=== PATIENT | male | born 1980 ===

== ENCOUNTER 2016-10-02 09:27 | Emergency (ER) | payer OTHER ==
[2016-10-02 09:27] VITALS: BMI 29.1
[2016-10-02 09:49] VITALS: RESP 18; TEMP 98.3
--- NOTE | 2016-10-02 10:58 | C.PDOC ---
History Of Present Illness 36 yr old male with PMHx of chronic back pain, presents to the ER for evaluation of back pain which started again this morning. Patient reports the pain is in the left lower lumbar area, no radiation, worse when he stands or walks. Patient states the last time he had this pain was 6 weeks ago and usually gets the pain 2-3 times a year. Patient denies fever, nausea, vomiting, abdominal pain, diarrhea, dysuria, hematuria, weakness or numbness. Time Seen by Provider: 10/02/16 10:12 Chief Complaint (Nursing): Back Pain History Per: Patient History/Exam Limitations: no limitations Onset/Duration Of Symptoms: Sudden Onset (this morning ) Current Symptoms Are (Timing): Still Present Past Medical History Reviewed: Historical Data, Nursing Documentation, Vital Signs Vital Signs: Last Vital Signs Temp 98.3 F 10/02/16 09:47 Pulse 67 10/02/16 11:06 Resp 18 10/02/16 11:06 BP 120/69 10/02/16 11:06 Pulse Ox 97 10/02/16 11:31 - Medical History PMH: Back Problems Family History: States: No Known Family Hx - Social History Hx Alcohol Use: Yes Hx Substance Use: No Review Of Systems Except As Marked, All Systems Reviewed And Found Negative. Constitutional: Negative for: Fever Gastrointestinal: Negative for: Nausea, Vomiting, Abdominal Pain, Diarrhea Genitourinary: Negative for: Dysuria, Hematuria Musculoskeletal: Positive for: Back Pain (left lower lumbar ) Neurological: Negative for: Weakness, Numbness Physical Exam - Physical Exam Appears: Non-toxic, No Acute Distress Skin: Warm, Dry, No Rash Head: Atraumatic, Normacephalic Cardiovascular: Rhythm Regular, No Murmur Respiratory: Normal Breath Sounds, No Rales, No Rhonchi, No Stridor, No Wheezing Gastrointestinal/Abdominal: Normal Exam, Soft, No Tenderness, No Guarding, No Rebound Back: No Muscle Spasm, No Straight Leg Raising, Other ((+) Left paralumbar tenderness) Extremity: Normal ROM, No Swelling Neurological/Psych: Oriented x3, Normal Speech, Normal Cognition, Normal Motor Gait: Steady ED Course And Treatment O2 Sat by Pulse Oximetry: 97 Medical Decision Making Medical Decision Making: PLAN: * Flexeril PO * Toradol IM No indication of cord compression plan dc home symptomatic meds clinic f/u Disposition - Disposition Referrals: [facility] [Outside] Disposition: HOME/ ROUTINE Disposition Time: 10:53 Condition: GOOD Prescriptions: Cyclobenzaprine [Cyclobenzaprine HCl] 1 tab PO Q8H PRN #25 tab PRN Reason: Muscle Spasm Naproxen [Naprosyn] 1 tab PO BID PRN #25 tab PRN Reason: Pain Instructions: Acute Low Back Pain (ED) Forms: Work Excuse - Clinical Impression Clinical Impression: Low back pain - Scribe Statement The provider has reviewed the documentation as recorded by the Latonia Mora Provider Attestation: All medical record entries made by the Latonia were at my direction and personally dictated by me. I have reviewed the chart and agree that the record accurately reflects my personal performance of the history, physical exam, medical decision making, and the department course for this patient. I have also personally directed, reviewed, and agree with the discharge instructions and disposition.
[2016-10-02 11:07] VITALS: BP 120/69; PULSE 67
[2016-10-02 11:29] VITALS: O2SAT 97
== END 2016-10-02 11:10 | disposition home or self-care (01) ==
LOC: C.ER 09:27
DX: M54.5 Low back pain (principal)
CPT/HCPCS: 96372; 99283; J1885

== ENCOUNTER 2017-02-18 14:43 | Emergency (ER) | payer SELFPAY ==
[2017-02-18 14:43] VITALS: BMI 29.1
[2017-02-18 14:48] VITALS: RESP 20
--- NOTE | 2017-02-18 15:17 | C.PDOC ---
History Of Present Illness 36 yr old male with PMHx of chronic "pinched nerve" s/p work accident years ago , presents to the ER for evaluation of back pain which started again this morning. STateshe lifts boses at work and believes this exacerbated the pain. Patient reports the pain is in the left lower lumbar area, no radiation, worse when he stands or walks. States he gets this pain every few months, no new symptoms, no new trauma. He does not have a doctor therefore comes here every time he gets the pain. Did not take anything for the pain. Patient denies fever , nausea, vomiting, abdominal pain, diarrhea, dysuria, hematuria, weakness, urinary/bowel incontinence, or numbness Time Seen by Provider: 02/18/17 14:49 Chief Complaint (Nursing): Back Pain History Per: Patient History/Exam Limitations: no limitations Onset/Duration Of Symptoms: Hrs Current Symptoms Are (Timing): Still Present Quality Of Discomfort: "Pain" Past Medical History Reviewed: Historical Data, Nursing Documentation, Vital Signs Vital Signs: Last Vital Signs Temp 97.4 F L 02/18/17 15:50 Pulse 62 02/18/17 15:50 Resp 20 02/18/17 15:50 BP 107/72 02/18/17 15:50 Pulse Ox 99 02/18/17 15:50 - Medical History PMH: Back Problems Family History: States: Unknown Family Hx - Social History Hx Alcohol Use: Yes Hx Substance Use: No - Immunization History Hx Tetanus Toxoid Vaccination: No Hx Influenza Vaccination: No Hx Pneumococcal Vaccination: No Review Of Systems Except As Marked, All Systems Reviewed And Found Negative. Constitutional: Negative for: Fever, Chills Gastrointestinal: Negative for: Nausea, Vomiting, Diarrhea Genitourinary: Negative for: Dysuria, Frequency, Incontinence Musculoskeletal: Positive for: Back Pain Skin: Negative for: Rash Neurological: Negative for: Weakness, Numbness Physical Exam - Physical Exam Appears: Non-toxic, No Acute Distress Skin: Normal Color, Warm, Dry, No Rash Head: Atraumatic, Normacephalic Eye(s): bilateral: Normal Inspection, EOMI Nose: Normal Oral Mucosa: Moist Neck: Normal ROM, Supple Chest: Symmetrical Cardiovascular: Rhythm Regular Respiratory: Normal Breath Sounds, No Rales, No Rhonchi, No Wheezing Gastrointestinal/Abdominal: Soft, No Tenderness, No Guarding, No Rebound Back: No CVA Tenderness, No Vertebral Tenderness, Muscle Spasm, Paraspinal Tenderness ((+) left lower lumbar) Pulses: Left Dorsalis Pedis: Normal, Right Dorsalis Pedis: Normal Neurological/Psych: Oriented x3, Normal Speech, Normal Motor, Normal Sensation, Other (No focal deficits) Gait: Steady ED Course And Treatment O2 Sat by Pulse Oximetry: 100 (RA) Pulse Ox Interpretation: Normal Reevaluation Time: 15:20 (On reassessment, patient is resting comfortably, with improvement of back pain. Patient remains afebrile, with no bony tenderness, extremity numbness or weakness, or abdominal pain. Patient is ambulatory in the emergency department with no signs of discomfort. Patient was advised to follow up with physician/clinic in 1-2 days.) Reassessment Condition: Improved Disposition - Disposition Disposition: HOME/ ROUTINE Disposition Time: 15:30 Condition: STABLE Additional Instructions: Vaya a melendez mdico o la clnica en 1-3 ritter sin falta, para mas evaluacin. Moffett los medicamentos kenna indicado. Volver a la heena de emergencia en cualquier momento si los sntomas persisten o empeoran. Prescriptions: Cyclobenzaprine [Cyclobenzaprine HCl] 10 mg PO TID #20 tab Naproxen [Naprosyn] 1 tab PO BID PRN #20 tab PRN Reason: Pain Instructions: Acute Low Back Pain (ED) Forms: [facility] [employer] (Ukrainian), Work Excuse Print Language: PORTUGUESE - Clinical Impression Clinical Impression: Lumbar sprain - Scribe Statement The provider has reviewed the documentation as recorded by the Latonia Parham All medical record entries made by the Scribe were at my direction and personally dictated by me. I have reviewed the chart and agree that the record accurately reflects my personal performance of the history, physical exam, medical decision making, and the department course for this patient. I have also personally directed, reviewed, and agree with the discharge instructions and disposition.
[2017-02-18 15:50] VITALS: BP 107/72; TEMP 97.4
[2017-02-18 16:05] VITALS: PULSE 62
[2017-02-18 20:57] VITALS: O2SAT 100
== END 2017-02-18 15:57 | disposition home or self-care (01) ==
LOC: C.ER 14:43
DX: S33.5XXA Sprain of ligaments of lumbar spine, initial encounter (principal); X50.0XXA Overexertion from strenuous movement or load, initial encounter; Y93.89 Activity, other specified; Y92.89 Other specified places as the place of occurrence of the external cause; Y99.8 Other external cause status
CPT/HCPCS: 96372; 99283; J1885

== ENCOUNTER 2017-04-03 15:57 | Emergency (ER) | payer OTHER ==
[2017-04-03 15:57] VITALS: BMI 29.1
[2017-04-03 16:01] VITALS: BP 112/79; RESP 18; TEMP 98.5
[2017-04-03] MEDS ORDERED: Lidocaine 5% Patch TD STA (16:11)
--- NOTE | 2017-04-03 16:14 | C.PDOC ---
History Of Present Illness 36 year old male presents to ER with complaints of low back pain radiating down the left leg since this morning. Patient reports history of "pinched nerve" and chronic back pain. He has been seen in ED for similar symptoms in the past, has no PMD. Time Seen by Provider: 04/03/17 16:06 Chief Complaint (Nursing): Back Pain History Per: Patient History/Exam Limitations: no limitations Current Symptoms Are (Timing): Still Present Previous Symptoms: Chronic Pain (chronic back pain ), Other (hx of "pinched nerve" ) Associated Symptoms: None Recent travel outside of the [place]: No Past Medical History Reviewed: Historical Data, Nursing Documentation, Vital Signs Vital Signs: Last Vital Signs Temp 98.5 F 04/03/17 15:59 Pulse 82 04/03/17 16:45 Resp 18 04/03/17 16:45 BP 112/79 04/03/17 15:59 Pulse Ox 96 04/03/17 17:25 - Medical History PMH: Back Problems Family History: States: Unknown Family Hx - Social History Hx Alcohol Use: Yes Hx Substance Use: No - Immunization History Hx Tetanus Toxoid Vaccination: No Hx Influenza Vaccination: No Hx Pneumococcal Vaccination: No Review Of Systems Constitutional: Negative for: Fever, Chills Gastrointestinal: Negative for: Nausea, Vomiting Musculoskeletal: Positive for: Back Pain, Leg Pain (radiating from lower back pain ) Physical Exam - Physical Exam Appears: Non-toxic, No Acute Distress Skin: Warm, Dry Head: Atraumatic, Normacephalic Eye(s): bilateral: Normal Inspection, PERRL, EOMI Neck: Normal ROM, Supple Chest: Symmetrical, No Deformity Cardiovascular: Rhythm Regular, No Murmur Respiratory: Normal Breath Sounds, No Rales, No Rhonchi, No Wheezing Gastrointestinal/Abdominal: Soft, No Tenderness Back: Paraspinal Tenderness (lumbosacral tenderness) Extremity: Normal ROM, No Tenderness Neurological/Psych: Oriented x3 ED Course And Treatment O2 Sat by Pulse Oximetry: 96 (room air ) Progress Note: Patient was given Flexeril, Toradol, and lidoderm was applied. Medical Decision Making Medical Decision Making: Impression: back pain Prior records reviewed: last seen 02/18/17 for back pain treated with Toradol and Flexeril Plan: * Toradol * Lidoderm * Flexeril Progress: On re-eval patient is feeling better asking for discharge papers. He is ambulatory without signs of discomfort. Patient is stable for discharge. Disposition Counseled Patient/Family Regarding: Diagnosis, Need For Followup, Rx Given - Disposition Referrals: [facility] [Outside] Disposition: HOME/ ROUTINE Disposition Time: 16:36 Condition: STABLE Additional Instructions: Follow up with the clinic in 2-5 days for further evaluation. Take medications as needed for pain. Return to the emergency department at any time if symptoms persist or worsen. You may call [facility] for any assistance . Prescriptions: Cyclobenzaprine [Cyclobenzaprine HCl] 10 mg PO TID #21 tab Ibuprofen [Motrin] 600 mg PO Q8 #30 tab Instructions: Sciatica (ED) Forms: [employer] (Somali) - POA Present On Arrival: None - Clinical Impression Clinical Impression: Low back pain, Sciatica - PA / FOREIGN LANGUAGE INTERPRETER / Resident Statement MD/DO has reviewed & agrees with the documentation as recorded. - Scribe Statement The provider has reviewed the documentation as recorded by the Scribe Tamiko Duran All medical record entries made by the Helioiblyn were at my direction and personally dictated by me. I have reviewed the chart and agree that the record accurately reflects my personal performance of the history, physical exam, medical decision making, and the department course for this patient. I have also personally directed, reviewed, and agree with the discharge instructions and disposition.
[2017-04-03] MEDS ORDERED: Lidocaine 5% Patch TD ONE (16:19)
[2017-04-03 17:13] VITALS: PULSE 82
[2017-04-03 17:22] VITALS: O2SAT 96
== END 2017-04-03 17:13 | disposition home or self-care (01) ==
LOC: C.ER 15:57
DX: M54.40 Lumbago with sciatica, unspecified side (principal)
CPT/HCPCS: 96372; 99283; J1885